=== PATIENT | female | born 1975 | race African-American/Black ===

== ENCOUNTER 2018-04-29 21:51 | Emergency (ER) | payer MEDICAID, OTHER ==
[~2018-04-29] VITALS: Ht 177.8 cm; Wt 111.1 kg
[~2018-04-29 21:51] MED LIST: CITA10TA59; LEVO25TA49
[2018-04-29 22:10] VITALS: BP 128/76
[2018-04-29] MEDS ORDERED: TETANUS-DIPTH-ACEL PERTUSSIS 0.5ML SYRG IM ONE (23:00)
[2018-05-01 08:06] LABS: Rubella Antibodies, IgG <0.90 index (Immune >0.99)
== END 2018-04-30 00:14 | disposition home or self-care (01) ==
LOC: ER 21:54
DX: Z02.0 Encounter for examination for admission to educational institution (principal); Z98.51 Tubal ligation status; Z86.39 Personal history of other endocrine, nutritional and metabolic disease
CPT/HCPCS: 36415; 86706; 86735; 86762; 86765; 86787; 90471; 90715